=== PATIENT | male | born 1965 | race Caucasian/White ===

== ENCOUNTER 2024-08-31 09:54 | Day surgery (SDC) | payer SELFPAY ==
[2024-08-31] VITALS (12 sets, daily range): BP systolic 95–145; BP diastolic 66–112; PULSE 66–92; RESP 16–28; TEMP 36.2–37.1; O2SAT 93–100; BMI 28.3
--- NOTE | 2024-08-31 10:52 | PCM.PRE.AN2 ---
ASA Classification* ASA Classification ASA Classification: 2 Assessment & Plan Anesthesia* Anesthesia Assessment Anesthesia Assessment: Discussed sedation and/or anesthesia options, risks, benefits, and alternatives with patient/parents/legal guardian/POA. Questions invited. The patient/parents/legal guardian/POA seems to understand and agrees to proceed with anesthesia plan. Reviewed the physical assessment, medical history, allergy history and patient home medications list prior to surgery/procedure/anesthetic and documented any changes. Performed airway and anesthesia risk assessments. Anesthesia Type Anesthesia Type: MAC History Source History Obtained from:: Patient and Chart Anesthesia Focused Assessment* Temperature: 97.7 F Pulse Rate: 69 Blood Pressure: 119/70 Respiratory Rate: 16 Pulse Ox: 98 Oxygen Delivery Method: Room Air Airway Assessment Mouth opens: >3 cm Mallampati Score: III Teeth Condition: Dentures (Patient has upper and lower dentures. 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 When Was Last Pacemaker Check QUESTION #4 FULL TEXT: You/Your Family Experience fever (hyperthermia) with Anesthesia Last Oral Intake Last Oral intake: Last Oral Intake NPO since 21:30 08/31/24 10:28 Meds taken in AM with sips of No 08/31/24 10:28 water? Meds patient instructed to take am of surgery PONV PONV - water service supervisor: PONV - water service supervisor Female No 08/29/24 14:43 HX of Motion Sickness No 08/29/24 14:43 HX of N/V After Surgery No 08/29/24 14:43 Non-Smoker Yes 08/29/24 14:43 Duration of Surgery greater No 08/29/24 14:43 than 60 minutes Number of Risk Factors 1 08/29/24 14:43 PONV Score Low Risk 08/29/24 14:43 Height & Weight Height & Weight: Anesthesia: Height & Weight Height 5 ft 9 in 08/31/24 10:28 Weight: 87 kg 08/31/24 10:28 Body Mass Index (BMI) 28.3 08/31/24 10:28 Respiratory Assessment Respiratory Assessment - water service supervisor: Respiratory Tract Infection Hx - water service supervisor Hx Respiratory Tract Infection No 08/29/24 14:43 STOP Sleep Apnea STOP Sleep Apnea - water service supervisor: STOP Sleep Apnea - water service supervisor Hx Hypertension No 08/29/24 14:43 Hx Sleep Apnea No 08/29/24 14:43 CPAP BIPAP Do you snore loudly (louder No 08/29/24 14:43 than talking or can be heard Do you often feel tired/ No 08/29/24 14:43 fatigued/ sleepy during daytime? Has anyone observed you stop No 08/29/24 14:43 breathing during sleep? STOP Results Negative 08/29/24 14:43 QUESTION #5 FULL TEXT : Do you snore loudly (louder than talking or can be heard through closed doors)? 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 Specify any problems Hx of Preganancy in last 3 N/A 08/29/24 14:43 Months Nurse Filling Out Transfusion VCHRISTIN 08/29/24 14:43 & Questions: Date: 08/29/24 08/29/24 14:43 Time: 14:45 08/29/24 14:43 Patient unable to answer at this time (ie. confused, unrespo /Reproduction History /Reproductive History - water service supervisor: /Reproductive Hx- water service supervisor Hx Now Gestational Age (in weeks): EDC: Hx Hx Para Hx Section SAB PFSH Medical History Wears dentures Wears glasses Arthritis Back pain Seizures Difficulty swallowing History of hiatal hernia Gastric reflux Former smoker Chest pain Home Medications ?Medication ?Instructions ?Recorded ?Last Taken ?Type NK 08/29/24 Unknown History Allergy/AdvReac Type Severity Reaction Status Date / Time No Known Allergies Allergy Verified 08/29/24 14:36 Surgical History Hx laparoscopic cholecystectomy Hx of appendectomy History of Edgar fundoplication Social History Smoking Status: Former smoker Review of Systems (Anesthesia) ROS Narrative System reviewed and no additional complaints, except as documented.
--- NOTE | 2024-08-31 12:23 | PCM.HP.STD ---
HPI - General General Date of Admission: 08/31/24 Date of Service: 08/31/24 Chief Complaint: Dysphagia HPI Narrative BACILIO SHEIKH, is a 58 M who presents for the evaluation of esophageal dysphagia. He does have occasional heartburn. He does not take any medicines on daily basis. He denies any chest pain or shortness of breath. Overall he is in very good health. [facility] Medical History (Updated 08/31/24 @ 12:[address] Darling Friend, DO) Wears dentures Wears glasses Arthritis Back pain Seizures Difficulty swallowing History of hiatal hernia Gastric reflux Former smoker Chest pain Home Medications ?Medication ?Instructions ?Recorded ?Last Taken ?Type NK 08/29/24 Unknown History Allergy/AdvReac Type Severity Reaction Status Date / Time No Known Allergies Allergy Verified 08/29/24 14:36 Surgical History Hx laparoscopic cholecystectomy Hx of appendectomy History of Edgar fundoplication Social History Smoking Status: Former smoker ROS Constitutional Constitutional: Denies fatigue, fever(s), poor appetite, weight gain or weight loss Gastrointestinal Gastrointestinal: Denies belching, bloating, change in bowel habits, change in stool character, chewing difficulty, coffee ground emesis, constipation, cramping, diarrhea, dyspepsia, dysphagia, early satiety, excessive flatus, fecal incontinence, heartburn, hematemesis, hematochezia, hemorrhoids, loose stools, melena, nausea, odynophagia, rectal bleeding, tenesmus, vomiting or weight changes Vital Signs Vital Signs Vital Signs: 08/31/24 10:28 08/31/24 10:28 08/31/24 10:55 Temperature 97.7 F L 97.7 F L Temperature Source Temporal Pulse Rate 69 69 Respiratory Rate 16 16 Respiratory Pattern Normal Blood Pressure 119/70 119/70 Blood Pressure Mean 86 Blood Pressure Source Monitor Blood Pressure Position Sitting Blood Pressure Location Right Arm Pulse Ox 98 98 Oxygen Delivery Method Room Air Room Air Weight Weight: 191 lb 12.835 oz Body Mass Index (BMI) 28.3 Physical Exam Const alert, oriented x3, no apparent distress and healthy appearing General Appearance: cooperative GI normal to inspection, nondistended, normoactive bowel sounds, soft to palpation, non-tender and non-distended Percussion: normal to percussion Rectal Exam: deferred Assessment & Plan Assessment/Plan (1) History of hiatal hernia: (2) Gastric reflux: (3) Difficulty swallowing: PLAN: Plan Very pleasant 58-year-old gentleman with past medical history of gastroesophageal reflux disease, hiatal hernia and intermittent esophageal dysphagia comes in for evaluation of difficulty swallowing solids. He will undergo an upper endoscopy. He was explained alternatives, risk and benefits include not withstanding bleeding, infection, sepsis, perforation, need emergent urgent . He will have an ASA of 3.
--- NOTE | 2024-08-31 12:56 | OP.EGD_ITS ---
Patient Name: Rowdy Davis Procedure Date: 08/31/2024 12:25 PM Date of : 1965 Age: 58 Procedure: Upper GI endoscopy Indications: Dysphagia Providers: Phong Melo DO Medicines: Monitored Anesthesia Care Patient Profile: This is a 58 year old male. Refer to note in patient chart for documentation of history and physical. Patient has symptoms of dysphagia with both liquids and solids. Complications: No immediate complications. Procedure: Pre-Anesthesia Assessment: - Prior to the procedure, a History and Physical was performed, and patient medications and allergies were reviewed. The patient is competent. The risks and benefits of the procedure and the sedation options and risks were discussed with the patient. All questions were answered and informed consent was obtained. Patient identification and proposed procedure were verified by the physician in the pre-procedure area. Mental Status Examination: alert and oriented. Airway Examination: normal oropharyngeal airway and neck mobility. Respiratory Examination: clear to auscultation. CV Examination: normal. Prophylactic Antibiotics: The patient does not require prophylactic antibiotics. Prior Anticoagulants: The patient has taken no anticoagulant or antiplatelet agents except for NSAID medication. ASA Grade Assessment: III - A patient with severe systemic disease. After reviewing the risks and benefits, the patient was deemed in satisfactory condition to undergo the procedure. The anesthesia plan was to use monitored anesthesia care (MAC). Immediately prior to administration of medications, the patient was re-assessed for adequacy to receive sedatives. The heart rate, respiratory rate, oxygen saturations, blood pressure, adequacy of pulmonary ventilation, and response to care were monitored throughout the procedure. The physical status of the patient was re-assessed after the procedure. After obtaining informed consent, the endoscope was passed under direct vision. Throughout the procedure, the patient's blood pressure, pulse, and oxygen saturations were monitored continuously. The Endoscope was introduced through the mouth, and advanced to the second part of duodenum. The upper GI endoscopy was accomplished without difficulty. The patient tolerated the procedure well. Scope In: 12:33:38 PM Scope Out: 12:45:40 PM Total Procedure Duration Time 0 hours 12 minutes 2 seconds Findings: Abnormal motility was noted at the lower esophageal sphincter. The cricopharyngeus was normal. There is a decrease in motility of the esophageal body. The distal esophagus/lower esophageal sphincter is spastic, but gives up passage to the endoscope. Normal peristalsis not noted. A guidewire was placed and the scope was withdrawn. Dilation was performed with a Savary dilator with no resistance at 60 Fr. The dilation site was examined and showed moderate improvement in luminal narrowing. Estimated blood loss was minimal. A medium-sized hiatal hernia was present. Evidence of a Edgar fundoplication was found in the gastric fundus. The wrap appeared very tight. This was traversed after dilation. No other significant abnormalities were identified in a careful examination of the stomach. No gross lesions were noted in the first portion of the duodenum. Food was found in the entire esophagus. Removal was accomplished with a via vigorous washing and suctioning. Impression: - Abnormal esophageal motility, consistent with achalasia. Dilated. - Medium-sized hiatal hernia. - A Edgar fundoplication was found. The wrap appears very tight. - No gross lesions in the first portion of the duodenum. - No specimens collected. Recommendation: - Discharge patient to home. - Resume previous diet. - Continue present medications. Procedure Code(s): --- Professional --- 79525, Esophagogastroduodenoscopy, flexible, transoral; with removal of foreign body(s) 00540, Esophagogastroduodenoscopy, flexible, transoral; with insertion of guide wire followed by passage of dilator(s) through esophagus over guide wire CPT copyright 2021 [employer]. All rights reserved. The codes documented in this report are preliminary and upon professional fee coder review may be revised to meet current compliance requirements. Phong Melo DO 08/31/2024 12:56:19 PM This report has been signed electronically. Number of Addenda: 0 Note Initiated On: 08/31/2024 12:25 PM
--- NOTE | 2024-08-31 13:00 | PCM.POST.ANE ---
Anesthesia: Postop Eval I Current Vital Signs Temperature: 97.7 F Pulse Rate: 88 Blood Pressure: 100/88 Respiratory Rate: 16 Pulse Ox: 98 Oxygen Delivery Method: Room Air Assessment Airway patent: Yes Spontaneous unlabored respirations: Yes Mental status: Awake nausea: No Vomiting: Yes Anesthesia Complication: Yes Anesthesia Complication Comment:: esophageal dysmotility d/t achalasia, vomiting and profuse coughing Fluid Hydration Crystalloid volume administer (ml): 30 Total IV fluid infused: 40 Progress Note Anesthesia document: Postop Eval 1 completed: Yes
--- NOTE | 2024-08-31 13:18 | RAD_ITS ---
PROCEDURE: CHEST 1 VIEW (PORTABLE) REASON FOR EXAM: Cough and dysphagia following EGD and dilation. TECHNIQUE: Single frontal image including the chest and abdomen. COMPARISON: None provided. RAD/Chest 1 View (Portable) IMPRESSION: An air-fluid level seen within apparently distended esophagus. Lungs appear clear. No pleural effusion or pneumothorax is noted. No evidence of pneumomediastinum. The cardiomediastinal silhouette is otherwise within the normal range. Reading Location: [id number]
[2024-08-31] MEDS: Ketorolac 30 MG/ML Syringe IV (13:49)
--- NOTE | 2024-08-31 13:58 | SUR.PHASEI ---
pt arrives to pacu asleep for only several seconds before monitors can even be applied he throws himself forward in bed violently coughing and emesis of phlegm and yellow liquid into bed. Pt coughing so hard he was incontinent of large amt of brown stool and urine. Trying to get out of bed d/t discomfort and distress to sit up and coughing. Up to [facility] and [facility] care. Dr Melo called order for stat CXR and Dr Melo to bedside with in 15 minutes. Discussed poss pneumonia and ordered TOradol 30mg for chest pain. wants to monitor pt and may poss need admitted overnight. Pt to bedside to explain happenings. Difficulty obtaining VS d/t moving and violent constant coughing, pt able to maintain airway and clear it with expectorating on his own. Coughing and gagging and emesis like intermittently. sp02 not less than 90% no o2 used. NSR once kept pt still for intermittent periods.
[2024-08-31] MEDS: Piperacil/Tazobactam 4.5 GM in 0.9% Normal Saline (100mL MB+) 100 ML IV (15:47)
--- NOTE | 2024-08-31 18:27 | PCM.POSTANE2 ---
Anesthesia Postop Eval I Sum Postop Eval Completion status Anesthesia document: Postop Eval 1 completed: Yes Anesthesia Postop Eval I Summary Anesthesia Postop Eval I Summary: Anesthesia Postop Eval I: Assessment Summary Airway patent Yes 08/31/24 13:02 [email or web address] Spontaneous unlabored Yes 08/31/24 13:02 [email or web address] respirations Mental status Awake 08/31/24 13:02 [email or web address] nausea No 08/31/24 13:02 [email or web address] Vomiting Yes 08/31/24 13:02 [email or web address] Anesthesia Postop Eval I: Fluid Summary Crystalloid volume administer 30 08/31/24 13:02 [email or web address] (ml) Colloids volume administered ( ml) Blood Product volume administered (ml) Total IV fluid infused 40 08/31/24 13:02 [email or web address] Anesthesia Postop Eval I: Summary Notes Anesthesia Complication Yes 08/31/24 13:02 [email or web address] Anesthesia Complication esophageal 08/31/24 13:02 [email or web address] Comment: dysmotility d/t achalasia, vomiting and profuse coughing Post-operative progress note Anesthesia: Postop Eval II Evaluation Mental status: Awake and Calm Pain Level: 0 nausea: No Vomiting: No Complications Anesthesia Complication: No
== END 2024-08-31 17:02 | disposition home or self-care (01) ==
LOC: EN 10:00 → AC 10:01
PROVIDERS: Visit Provider Internal Medicine Gastroenterology
PROC: 0DJ08ZZ Inspection of Upper Intestinal Tract, Via Natural or Artificial Opening Endoscopic (ICD-10-PCS; CPT 43235; principal; 2024-08-31 11:55)
DX: R13.10 Dysphagia, unspecified (principal); K44.9 Diaphragmatic hernia without obstruction or gangrene; K21.9 Gastro-esophageal reflux disease without esophagitis; Z87.891 Personal history of nicotine dependence; Z90.49 Acquired absence of other specified parts of digestive tract; K22.89 Other specified disease of esophagus
CPT/HCPCS: 43248; 43247; 71045; C1769; J2405